=== PATIENT | female | born 1985 | race Caucasian/White ===

== ENCOUNTER → 2018-05-14 | Outpatient (CLI) | payer BC, OTHER ==
[~2018-05-14] MED LIST: DCS100C PO; FERR-57 PO; IBP600T1 PO; IBP800T PO; IBUP800T26 PO; ONDN4T PO; OXYC1TAB12 PO; PREN1TAB39 PO; TRAM50TA2 PO; Tramadol Hcl PO
--- NOTE | 2018-05-14 11:08 | Diagnostic Imaging Report ---
PROCEDURE: US Thyroid. TECHNIQUE: Multiple real-time grayscale images were obtained of the thyroid in various projections. INDICATION: Enlarging nodule in the left thyroid. No prior studies available for comparison. Right lobe of thyroid measures 4.2 x 1.3 x 1.6 cm and the left lobe measures 3.5 x 1.2 x 1.5 cm. The isthmus is 2 mm in thickness. Both lobes appear fairly homogeneous in echotexture. There is a small circumscribed hypoechoic nodule in the mid right lobe measuring 7 mm x 4 mm x 4 mm. The left lobe is unremarkable. IMPRESSION: Subcentimeter right lobe thyroid nodule. No other significant abnormalities detected. Dictated by: Dictated on workstation # [id number]
== END ==
LOC: RAD 10:07
PROVIDERS: ATTEND Family Medicine
DX: E04.1 Nontoxic single thyroid nodule (principal)
CPT/HCPCS: 76536

== ENCOUNTER → 2018-05-27 | Outpatient (CLI) | payer BC ==
--- NOTE | 2018-05-27 10:58 | Diagnostic Imaging Report ---
CLINICAL INDICATION: Patient with anterior neck mass. BB has been placed in the region. EXAM: CT scan of the neck soft tissue performed with 75 cc of Omnipaque 350 IV contrast. Sagittal and coronal reformatted images are created. COMPARISON: Thyroid ultrasound exam dated 05/14/2018. FINDINGS: There is a 0.6 cm x 1.0 cm x 2.1 cm (AP x Trans x CC) low density lobulated lesion with thin peripheral enhancement located in the midline and just left of midline anterior aspect of the neck. This is seen just anterior to the thyroid cartilage and extends superiorly to the level of the hyoid. There is no bony erosive or destructive changes. There is no adjacent soft tissue fat stranding. This is in the region of the BB marker. 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 Thyroid gland appears to be within normal size and appearance. The thyroid gland was better visualized on the thyroid ultrasound exam. There is no cervical lymphadenopathy. The nasopharynx, oropharynx, hypopharynx, and laryngeal soft tissue structures are unremarkable and symmetric. Bilateral salivary glands are unremarkable. The remainder of the neck soft tissue structures are unremarkable. Visualized upper lung myers are clear. The visualized intracranial structures, and orbits are unremarkable. Neck soft tissue structures show no significant abnormalities. The visualized paranasal sinuses show mild mucosal thickening in the right maxillary sinus. Temporal bone structures show no significant abnormality. Cervical spine is unremarkable. 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 This is seen beneath the BB marker. There is no adjacent fat stranding or nodular enhancement. The thyroid gland shows no gross abnormality on CT, but is better visualized on the comparison thyroid ultrasound exam. 2: Mild right maxillary sinus disease. Otherwise, the remainder of the CT neck exam is unremarkable. Dictated by: Dictated on workstation # [id number]
== END ==
LOC: RAD 08:11
PROVIDERS: ATTEND Otolaryngology Otolaryngology/Facial Plastic Surgery
DX: J32.0 Chronic maxillary sinusitis (principal); Q89.2 Congenital malformations of other endocrine glands; R22.1 Localized swelling, mass and lump, neck
CPT/HCPCS: 70491